=== PATIENT | female | born 1950 | race Caucasian/White ===

== ENCOUNTER → 2018-01-07 | Day surgery (SDC) | payer MEDICARE, OTHER ==
[~2018-01-07] MED LIST: ASCO100029 PO; ASPI-516 CHEW; BUPIVACAINE HCL PF 0.5% 30 ML VIAL ONE; CALC12502 PO; CALC1TAB55 PO; COQ-50CA2 PO; ETOD400T PO; FLAX1000 PO; HYDR12.57 PO; MAGN100T2 PO; MAGN400T24 PO; MENA1TAB PO; PROB1CAP12 PO; PROPOFOL 200 MG/20 ML AMP IV ONE; TRIAMCINOLONE ACETONIDE 40 MG/ML VIAL I-ARTICULR ONE; TURM500C3 PO; VITAMIN B3 PO; [UNRECOGNIZED DRUG - CODE] PO; [UNRECOGNIZED DRUG - OTHER] PO
--- NOTE | 2018-01-07 11:04 | M6 ---
cc: Kalani Dunbar MD 01/07/2018 PROCEDURE: Fluoroscopically guided injection left cervical facet joints (left C1-2, C2-3, and C3-4). PROCEDURE NOTE: History and physical was completed and signed. Consent was signed. Procedure site was marked. Medications were listed and reconciled. Pain score was recorded. Allergies were noted. Time out was taken. Fluoroscopy time was recorded where applicable. Sedation was administered or directed by Dr. Dunbar. The patient was given oxygen. The patient was monitored by a registered nurse. Total procedure time was greater than 15 minutes. An IV was started, blood pressure cuff, pulse oximeter and EKG were applied. The patient was placed in the prone position on a Angelo table, sedated with small amounts of Propofol titrated to effect. Vital signs were monitored and remained stable throughout the procedure. The cervical area was prepped with alcohol and 10% Betadine solution, draped with sterile drapes. Fluoroscopy was used to visualize the left C1-2, C2-3 and C3-4 facet joints. Separate sterile 3-1/2 inch, 25 gauge spinal needles were advanced into these joints under fluoroscopic guidance. There was negative aspiration for blood or any other type of fluid and at each location the patient was given 1 mL of Marcaine 0.5% which contained 10 mg of Kenalog. Following the procedure, the patient was taken to the recovery room with stable vital signs neurologically intact. She will be evaluated immediately and with follow up to determine if she has a subjective decrease in her usual pain and a corresponding objective increase in her functional capabilities. MD TENA Robertson/HANK , 09:46 AM , 10:10 AM
== END | disposition home or self-care (01) ==
LOC: PHSDC 08:14
PROVIDERS: ATTEND Pain Medicine Interventional Pain Medicine
DX: M54.2 Cervicalgia (principal); R51 Headache
CPT/HCPCS: 64490; 64491; 64492; 99152; J3301